=== PATIENT | male | born 1980 | race Caucasian/White ===

== ENCOUNTER 2025-06-20 12:50 | Outpatient (AMB) | payer BC, SELFPAY ==
--- NOTE | 2025-06-20 12:56 | MHC.PC.OV ---
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 Transferring care from [facility]. Medical records have been requested and have not received. 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 He reports difficulty maintaining sleep, waking up after approximately three hours and experiencing difficulty returning to sleep. 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 He denies any anxiety or depression but acknowledges snoring and waking up tired. He has not tried any sleep aids recently. The patient experiences left knee pain, which has persisted for a couple of years. He describes the pain as general soreness with occasional shooting pain at the back of the knee, exacerbated by bending. He wears compression sleeves on both knees and has not had any imaging done previously. The patient has a history of alcohol use disorder, for which he underwent detoxification six years ago. He has been sober since and attends Alcoholics Anonymous meetings. He also smokes approximately ten cigarettes a day and has done so for 28 years. Family history is significant for type 2 diabetes mellitus in his mother, sister, and maternal grandmother, and multiple sclerosis in his father. Reports right upper back mole dark brown, and a lower left back irregular shaping mole that he would like getting examined [facility] Medical History (Updated 06/25/25 @ 16:55 by TELLO Hoskins) Smoker Left knee pain Alcoholism Surgical History No pertinent past surgical history Family History Mother Diabetes mellitus Sister Diabetes mellitus Father Multiple sclerosis Maternal Grandmother Diabetes mellitus Social History Housing: Condominium Alcohol intake: former Patient Tobacco Use Status: Current everyday Tobacco user Tobacco use type: Cigarette Cigarette Packs Per Day: 0.5 Cigarettes Per Day: 10 e-Cigarette/Vaping Use: Never Used Second Hand Smoke Exposure: Yes service: No Current occupational status: employed Current occupation: [employer] Cognitive needs: No Hearing needs: No Vision needs: Yes (Glasses) Questionnaire PHQ-9 Over the last 2 weeks, how often have you been bothered by any of the following problems? 1. Little interest or pleasure in doing things: not at all 2. Feeling down, depressed, or hopeless: not at all 3. Trouble falling or staying asleep, or sleeping too much: more than half the days 4. Feeling tired or having little energy: several days 5. Poor appetite or overeating: not at all 6. Feeling bad about yourself - or that you are a failure or have let yourself or your family down: not at all 7. Trouble concentrating on things, such as reading the newspaper or watching television: not at all 8. Moving or speaking so slowly that other people could have noticed. Or the opposite - being so fidgety or restless that you have been moving around a lot more than usual: not at all 9. Thoughts that you would be better off or of hurting yourself in some way: not at all Total score: 3 Depression Screening Interpretation: Negative Depression Screening Done: Yes 85531 - PHQ-9 Billing: Yes Source: Developed by Drs. Colton Chong, Esteban Mcghee and colleagues, with an educational tonny from [employer]. Thrive Questionnaire Date Thrive assessed: 06/20/25 I am a: Patient What is your living situation today?: I have a steady place to live Within the past 12 months, did the food you bought not last and you didn't have the money to get more?: Never true Within the past 12 months, did you worry whether your food would run out before you got money to buy more?: Never true Do you have trouble paying for medicines?: No Do you have trouble getting transportation to medical appointments?: No Do you have trouble paying your heating and electricity bill?: No Do you have trouble taking care of your child, family member or friend?: No Do you have trouble with day-to-day activities such as bathing, preparing meals, shopping, managing finances, etc.?: No Are you currently unemployed and looking for a job?: No Are you interested in more education?: No Please select the resources that you would like help with: None Currently or been in a relationship where the following occur: No concerns reported THRIVE Score: 0 AUDIT C Alcohol Use Questionnaire (AUDIT-C) 1. How often do you have a drink containing alcohol?: Never Total Score: 0 MARSHAL-7 AMB Questionnaire MARSHAL-7 Date MARSHAL - 7 assessed: 06/20/25 Feeling nervous, anxious, or on edge: 0 = Not at all Not being able to stop or control worryin = Not at all Worrying too much about different things: 0 = Not at all Trouble relaxin = Not at all Being so restless that it is hard to sit still: 0 = Not at all Becoming easily annoyed or irritable: 0 = Not at all Feeling afraid as if something awful might happen: 0 = Not at all Total MARSHAL-7 score (0-4 normal; 5-9 mild; 10-14 moderate; 15-21 severe): 0 Source: Developed by Drs. Colton Chong, Esteban Mcghee and colleagues, with an educational tonny from [employer]. MARSHAL-7 Assessment Billing MARSHAL-7 Assessment Tool: MARSHAL-7 Assessment 22271 Review of Systems Const Reports daytime sleepiness, Reports difficulty sleeping, Denies headache(s), Reports snoring and Reports stops breathing during sleep Eyes Denies loss of vision ENT Denies vertigo, Denies dizziness, Denies headache(s) and Denies sore throat Card Denies chest pain, Denies leg edema and Denies lightheadedness Resp Denies cough, Denies hemoptysis, Reports snoring and Denies wheezing GI Denies abdominal pain, Denies melena, Denies constipation, Denies diarrhea and Denies vomiting Denies dysuria, Denies urinary frequency and Denies urinary urgency Musc Reports arthralgias (Left knee), Denies joint swelling, Denies numbness and Denies tingling Skin/Breast Reports lesions (skin mole) and Denies rash Neuro Denies Abnormal speech present, Denies behavioral changes, Denies vertigo, Denies dizziness, Denies headache(s), Denies loss of vision, Denies memory loss, Denies numbness and Denies tingling Psych Denies anxiety, Denies behavioral changes, Denies depression, Denies memory loss and Denies panic attacks Rocael/Lymph Denies easy bleeding and Denies easy bruising Aller/Immun Denies wheezing Physical exam (Primary Care) Vital Signs: Last Vital Signs Temp 97.1 F 06/20/25 12:58 Pulse 82 06/20/25 12:58 BP 120/80 06/20/25 12:58 Pulse Ox 97 06/20/25 12:58 Oxygen Delivery Method Room Air 06/20/25 12:58 BMI result Body Mass Index 26.9 Tobacco/Smoking Status: Tobacco use Status Tobacco use date assessed 06/20/25 06/20/25 13:08 Patient Tobacco Use Status Current everyday Tobacco 06/20/25 13:08 Tobacco use type Cigarette 06/20/25 13:08 e-Cigarette/Vaping Use Never Used 06/20/25 13:08 PHQ-9: PHQ-9 Score PHQ-9: Total score 3 06/20/25 13:13 Depression Screening Interpretation: Negative Thrive Assessment: Date of Thrive Assessment Date Thrive assessed 06/20/25 06/20/25 13:08 Currently or been in a relationship where the following occur: No concerns reported Const General: healthy appearing, no acute distress, alert and awake Nutritional Appearance: well nourished Orientation/consciousness: oriented to person, oriented to place and oriented to time HENPR Ears: TM's normal bilaterally General nose exam: Normal nasal mucous membranes and turbinates present Eyes Conjunctivae: conjunctivae normal Sclerae: sclerae normal Pupils: Equal, round and reactive pupils present Neck Neck: Yes no lymphadenopathy and Yes no JVD Thyroid: Thyroid normal Carotids: no bruits Resp Effort & Inspection: normal respiratory effort and not tachypneic Auscultation: no crackles, no rales, no rhonchi and no wheezes Cardio Rate: regular rate Rhythm: regular rhythm Heart sounds: S1 normal heart sound present, S2 normal heart sound present, no murmurs and normal S1 and S2 GI Palpation (GI): Soft to palpation, nontender, no hepatomegaly and no splenomegaly Auscultation: normal bowel sounds General: Yes no CVA tenderness Back/Spine/Pelvis Back: no CVA tenderness Skin General skin exam: dry skin Lesions: lesion noted (Right upper back mole and left lower back irregular changed flesh colored) Neuro General: oriented to person, oriented to place and oriented to time Cranial nerves: Yes Equal, round and reactive pupils present Speech: No Abnormal speech present Gait exam (Neuro): Normal gait present Motor exam (neuro): no tremor noted Extrem Right upper extremity: full ROM Left upper extremity: full ROM Right lower extremity: full ROM; no edema Left lower extremity: full ROM and knee Details: tenderness Location: of the pre-patellar area; no swelling; no edema Psych Mental Status: mental status grossly normal Speech and movement: Normal speech and movement present Affect: normal affect Attitude: cooperative Thought process: Normal thought process present Coding Level of Care Code New Pt Level 4 (35980) Diagnoses Heartburn R12 Smoker F17.200 Insomnia, unspecified type G47.00 Insomnia type: unspecified Left knee pain, unspecified chronicity M25.562 Chronicity: unspecified Alcoholism F10.20 Skin mole D22.9 Additional Codes MARSHAL-7 Assessment Billing - MARSHAL-7 Assessment Tool: MARSHAL-7 Assessment 93054 ([id number]) PHQ-9 - 70470 - PHQ-9 Billing: Yes ([id number]) Time Spent (min) 38 Assessment & Plan Assessment & Plan (1) Heartburn: Code(s): R12 - Heartburn Category: Medical Plan: Intermittent heartburn before which the patient is taking omeprazole 20 mg daily as needed Do not eat meals or drink carbonated beverages within 3 hr of bedtime Decrease the amount of fried, fatty, and spicy foods to decrease gastric acid production Raise the head of the bed using 4 to 6-inch blocks, especially if nocturnal symptoms are present Lose weight if indicated; avoid tight-fitting clothing, especially around the waist Avoid foods that relax the Lower esophageal sphincter (chocolate, peppermint, high-fat foods etc.,) (2) Smoker: Code(s): F17.200 - Nicotine dependence, unspecified, uncomplicated Category: Social Hx Plan: Encouraged Smoking cessation (3) Insomnia: Code(s): G47.00 - Insomnia, unspecified Category: Medical Qualifiers: Insomnia type: unspecified Qualified Code(s): G47.00 - Insomnia, unspecified Plan: Patient is having difficulty sleeping. Reports of waking up tired, loud snoring, apneic episodes and daytime tiredness. All consistent with sleep apnea. Sleep study ordered to further evaluate (4) Left knee pain: Code(s): M25.562 - Pain in left knee Category: Medical Qualifiers: Chronicity: unspecified Qualified Code(s): M25.562 - Pain in left knee Plan: Longstanding knee pain, positive tenderness over prepatellar region. Left knee x-ray ordered to further evaluate. (5) Alcoholism: Comment: Continued sobriety over 6 years now Code(s): F10.20 - Alcohol dependence, uncomplicated Category: Medical Plan: History of alcoholism. In remission for over 6 years. Attends AA meetings. (6) Skin mole: Code(s): D22.9 - Melanocytic nevi, unspecified Category: Medical Plan: Right upper back mole. Dermatology referral for routine skin assessment. Orders: Orders UA CC w/rflx Micro + Cult 7 Weeks Z00.00 - Encounter for general adult medical examination without abnormal findings Vitamin D 25-OH Total 7 Weeks Z00.00 - Encounter for general adult medical examination without abnormal findings XR knee LT 3V 06/20/25 M25.562 - Pain in left knee Complete Blood Count Auto Diff 7 Weeks Z00.00 - Encounter for general adult medical examination without abnormal findings Comprehensive Gary. Panel Fast 7 Weeks Z00.00 - Encounter for general adult medical examination without abnormal findings Lipid Panel 7 Weeks Z00.00 - Encounter for general adult medical examination without abnormal findings TSH reflex Free T4 7 Weeks Z00.00 - Encounter for general adult medical examination without abnormal findings RT home sleep study 06/20/25 G47.30 - Sleep apnea, unspecified Referrals Dermatology Referral D22.9 - Melanocytic nevi, unspecified Medications: New trazodone 50 mg PO BEDTIME PRN 30 tabs 3RF sleep
[2025-06-20 12:58] VITALS: BP 120/80; PULSE 82; TEMP 36.2; O2SAT 97; BMI 26.9
== END 2025-06-20 13:35 | disposition home or self-care (01) ==
LOC: HO.HMCH 12:51
DX: R12 Heartburn (principal); F10.20 Alcohol dependence, uncomplicated; F17.200 Nicotine dependence, unspecified, uncomplicated; G47.00 Insomnia, unspecified; M25.562 Pain in left knee; D22.9 Melanocytic nevi, unspecified

== ENCOUNTER → 2025-06-20 12:50 | Outpatient (BNVA) | payer BC, SELFPAY | DX: M25.562 Pain in left knee (principal); G47.00 Insomnia, unspecified; R12 Heartburn; D22.9 Melanocytic nevi, unspecified; G47.30 Sleep apnea, unspecified; F10.20 Alcohol dependence, uncomplicated; F17.210 Nicotine dependence, cigarettes, uncomplicated | CPT/HCPCS: 96127 ==

== ENCOUNTER 2025-08-05 07:15 | Outpatient (REF) | payer BC, SELFPAY ==
--- NOTE | ~2025-08-05 | XR_ITS ---
EXAMINATION: XR KNEE 3 VIEWS LEFT HISTORY: M25.562 - Pain in left knee COMPARISON: There are no prior studies available for comparison. FINDINGS: Three views of the left knee are submitted. Osseous mineralization is normal. There is no fracture or dislocation. The joint spaces are preserved. The soft tissues are unremarkable. There is no joint effusion. XR/XR knee LT 3V IMPRESSION: Unremarkable examination of the left knee. Electronically signed by: Colton Wilkes MD 08/05/2025 07:50 AM EST
--- OUTSIDE RECORDS SUMMARY | 2025-08-05 07:21 | XMS_ITS | Clinical Summary ---
Author Organization [facility] ity Address [address] [place] [address] Care Team Providers Care Full Stack Php Developer Name Role Phone Unavailable Primary Care Provider Unavailabl e Social History Tobacco Use Types Packs/Day Years Used Date Smoking Tobacco: Never Assessed Sex and Gender Information Value Date Recorded Sex Assigned at Not on file Legal Sex Male 10:17 PM EST Gender Identity Not on file Sexual Orientation Not on file Plan of Treatment Health Maintenance Due Date Last Done Comments Colorectal Cancer Screening: Colonoscopy 1980 DTaP,Tdap,and Td Vaccines (1 - Tdap) 1999 Hepatitis B Vaccines (1 of 3 - 19+ 3-dose series) 1999 HPV Vaccines (1 - 3-dose SCD M series) 2007 Cholesterol Screening (Lipid Panel) 03/23/2024 HIV Screening 03/23/2024 Hepatitis C Screening 03/23/2024 Social Influencers of Health Screening 03/23/2024 Depression Screening 09/01/2024 COVID-19 Vaccine (1 - 2024-2 6 season) 2025 Influenza Vaccine (#1) 2025 RSV Immunization Adult Patie nts (1 - 1-dose 75+ series) 2055 HIB Vaccines Aged Out No longer eligi ble based on patient's age to complete this topic Hepatitis A Vaccines Aged Out No long er eligible based on patient's age to complete this topic IPV Vaccines Aged Out No longer eligi ble based on patient's age to complete this topic MMR Vaccines Aged Out No longer eligi ble based on patient's age to complete this topic Meningococcal ACWY Vaccine Aged Out N o longer eligible based on patient's age to complete this topic Meningococcal B Vaccine Aged Out No l onger eligible based on patient's age to complete this topic Pneumococcal Vaccine: Pediat rics (0 to 5 Years) and At-Risk Patients (6 to 49 Years) Aged Out No longer eligible b ased on patient's age to complete this topic RSV Immunization Patients Un jocelyne 20 months Aged Out No longer eligible b ased on patient's age to complete this topic Varicella Vaccines Aged Out No longer eligible based on patient's age to complete this topic
[2025-08-05 07:30] LABS: MANUAL DIFF FLAG NO
[2025-08-05 07:51] LABS: Hematocrit 44.8 % (42.0-52.0); Hemoglobin 14.9 g/dl (14.0-18.0); Imm Gran Abs Auto 0.01 X10*3/uL (0.00-0.03); Imm Gran Pct Auto 0.2 % (0.0-0.4); Lymphocytes Absolute Auto 1.5 X10*3/uL (1.2-4.9); Mean Corpuscular HGB Conc 33.3 g/dl (31.0-36.0); Mean Corpuscular Hemoglobin 30.7 pg (27.0-33.0); Mean Corpuscular Volume 92.2 fL (80.0-98.0); NRBC Abs Auto 0.000 X10*3/uL (0.0-0.012); NRBC Pct Auto 0.0 /100WBC (0.0-0.2); Platelet Count 209 X10*3/uL (160-400); Red Blood Count 4.86 X10*6/uL (4.60-5.80); White Blood Count 5.2 X10*3/uL (4.8-10.8)
[2025-08-05 08:03] LABS: Appearance Urine Clear; Glucose Urine UA Negative (Negative); PH 5.5 (5.0-9.0); Specific Gravity - Urine 1.015 (1.005-1.025)
[2025-08-05 08:46] LABS: Alanine Aminotransferase 40 U/L (0-40); Albumin Level 5.0 g/dL (3.5-5.0); Alkaline Phosphatase 75 U/L (39-117); Anion Gap 12 (12-20); Aspartate Amino Transferase 30 U/L (5-37); Blood Urea Nitrogen 13 mg/dL (9-16); Calcium 9.5 mg/dL (8.4-10.2); Carbon Dioxide 29 mmol/L (22-29); Chloride 107 mmol/L (96-108); Cholesterol 191 mg/dL (<200); Estimated Glomerular Filt Rate > 60; HDL Cholesterol 45 mg/dL (>40); Potassium 4.5 mmol/L (3.3-5.1); Sodium 143 mmol/L (135-145); Total Protein 7.2 g/dL (6.5-8.0); Triglycerides 83 mg/dL (<150)
== END 2025-08-05 07:16 | disposition home or self-care (01) ==
LOC: HO.XRAY 07:15
DX: Z00.00 Encounter for general adult medical examination without abnormal findings (principal); M25.562 Pain in left knee; Z13.29 Encounter for screening for other suspected endocrine disorder; Z13.21 Encounter for screening for nutritional disorder; Z13.6 Encounter for screening for cardiovascular disorders
CPT/HCPCS: 36415; 73562; 80053; 80061; 81003; 82306; 84443; 85025

== ENCOUNTER → 2025-08-05 07:37 | Outpatient (BNV) | payer BC, SELFPAY | PROVIDERS: Visit Provider Radiology Diagnostic Radiology | DX: M25.562 Pain in left knee (principal) | CPT/HCPCS: 73562 ==

== ENCOUNTER 2025-08-11 08:15 | Outpatient (AMB) | payer BC, SELFPAY ==
--- NOTE | 2025-08-11 08:18 | MHC.PC.OV ---
Vital Signs 08/11/25 08:19 Height 5 ft 9.29 in Weight 184 lb BMI 26.9 BP 118/64 Blood Pressure Location Lt brachial Position Sitting Pulse 74 Pulse Source Pulse Oximeter Temp 97.1 F Temp Source Temporal Artery Scan Pulse Oximetry (%) 99 Oxygen Delivery Method Room Air Intake Visit Reasons: annual physical/lab review Intake Note: Patient is here today for a physical. Records Technician Required: No Brakes Inspector: Not Required per policy Accompanied by: Self / Same As Patient Allergies No Known Allergies Allergy (Verified 08/11/25 08:34) Medication List - Last Reconciled 08/11/25 by TELLO Hoskins trazodone 50 mg PO BEDTIME PRN Tobacco use date assessed: 08/11/25 Dental Screening Dental Screen Date: 06/20/25 HPI annual physical/lab review HPI Details Dentist: about 3 years Eye: up to date Snellen: Right: Left: Corrected vision: yes, glasses STI screening: Colonoscopy: cologuard Pap Smer: PHQ-9: Flu:igven in the office today COVID: x3 Tdap:about 7 or 8 years since he had this done Diet: regular Exercise: does not The patient is a 45 year old male presenting for a physical examination. He reports bilateral knee pain, which is worse in the left knee. The pain is manageable but present as he is on his feet all day at work. He uses compression sleeves to manage the symptoms. He denies any recent injury but notes the pain has gotten progressively worse over time. An X-ray of the knee was normal. Regarding his health maintenance, he has not seen a dentist in three years and had his last eye exam in November, for which he wears glasses. He has never had a colonoscopy, but his father has a history of benign polyps. He reports having three COVID-19 vaccines and a tetanus shot 7-8 years ago. He did not receive the flu vaccine this year but usually does. He experiences poor sleep, which has not improved. 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 [facility] Medical History (Updated 08/11/25 @ 09:05 by TELLO Hoskins) Smoker Left knee pain Alcoholism Surgical History No pertinent past surgical history Family History Mother Diabetes mellitus Sister Diabetes mellitus Father Multiple sclerosis Maternal Grandmother Diabetes mellitus Social History (Updated 08/11/25 @ 08:23 by FELY Palafox) Housing: Condominium Alcohol intake: former Patient Tobacco Use Status: Former Tobacco user (Quit 07/2025) Tobacco use type: Cigarette Cigarette Packs Per Day: 0.5 Cigarettes Per Day: 10 e-Cigarette/Vaping Use: Never Used Second Hand Smoke Exposure: Yes service: No Current occupational status: employed Current occupation: Retail Cognitive needs: No Hearing needs: No Vision needs: Yes (Glasses) Questionnaire PHQ-9 Over the last 2 weeks, how often have you been bothered by any of the following problems? Depression Screening Interpretation: Negative Depression Screening Done: Yes Source: Developed by Drs. Colton Chong, Dee Broussard, Esteban Hardin and colleagues, with an educational tonny from [employer]. Thrive Questionnaire Date Thrive assessed: 06/20/25 I am a: Patient What is your living situation today?: I have a steady place to live Within the past 12 months, did the food you bought not last and you didn't have the money to get more?: Never true Within the past 12 months, did you worry whether your food would run out before you got money to buy more?: Never true Do you have trouble paying for medicines?: No Do you have trouble getting transportation to medical appointments?: No Do you have trouble paying your heating and electricity bill?: No Do you have trouble taking care of your child, family member or friend?: No Do you have trouble with day-to-day activities such as bathing, preparing meals, shopping, managing finances, etc.?: No Are you currently unemployed and looking for a job?: No Are you interested in more education?: No Please select the resources that you would like help with: None Currently or been in a relationship where the following occur: No concerns reported THRIVE Score: 0 MARSHAL-7 AMB Questionnaire MARSHAL-7 Date MARSHAL - 7 assessed: 06/20/25 Source: Developed by Aguila Griemset B.W. Bobo, Esteban Hardin and colleagues, with an educational tonny from [employer]. Review of Systems Const Reports daytime sleepiness, Reports difficulty sleeping, Denies headache(s), Reports snoring and Reports stops breathing during sleep Eyes Denies loss of vision ENT Denies vertigo, Denies dizziness, Denies headache(s) and Denies sore throat Card Denies chest pain, Denies leg edema and Denies lightheadedness Resp Denies cough, Denies hemoptysis, Reports snoring and Denies wheezing GI Denies abdominal pain, Denies melena, Denies constipation, Denies diarrhea and Denies vomiting Denies dysuria, Denies urinary frequency and Denies urinary urgency Musc Reports arthralgias (Left knee), Denies joint swelling, Denies numbness and Denies tingling Skin/Breast Reports lesions (skin mole) and Denies rash Neuro Denies Abnormal speech present, Denies behavioral changes, Denies vertigo, Denies dizziness, Denies headache(s), Denies loss of vision, Denies memory loss, Denies numbness and Denies tingling Psych Denies anxiety, Denies behavioral changes, Denies depression, Denies memory loss and Denies panic attacks Rocael/Lymph Denies easy bleeding and Denies easy bruising Aller/Immun Denies wheezing Physical exam (Primary Care) Vital Signs: Last Vital Signs Temp 97.1 F 08/11/25 08:19 Pulse 74 08/11/25 08:19 BP 140/70 H 08/11/25 08:19 Pulse Ox 99 08/11/25 08:19 Oxygen Delivery Method Room Air 08/11/25 08:19 BMI result Body Mass Index 26.9 Tobacco/Smoking Status: Tobacco use Status Tobacco use date assessed 08/11/25 08/11/25 08:24 Patient Tobacco Use Status Former Tobacco user (Quit 11 08/11/25 08:24 ) Tobacco use type Cigarette 08/11/25 08:24 e-Cigarette/Vaping Use Never Used 08/11/25 08:24 Depression Screening Interpretation: Negative Thrive Assessment: Date of Thrive Assessment Date Thrive assessed 06/20/25 08/11/25 08:24 Currently or been in a relationship where the following occur: No concerns reported Const General: healthy appearing, no acute distress, alert and awake Nutritional Appearance: well nourished Orientation/consciousness: oriented to person, oriented to place and oriented to time HENMT Ears: TM's normal bilaterally General nose exam: Normal nasal mucous membranes and turbinates present Eyes Conjunctivae: conjunctivae normal Sclerae: sclerae normal Pupils: Equal, round and reactive pupils present Neck Neck: Yes no lymphadenopathy and Yes no JVD Thyroid: Thyroid normal Carotids: no bruits Resp Effort & Inspection: normal respiratory effort and not tachypneic Auscultation: no crackles, no rales, no rhonchi and no wheezes Cardio Rate: regular rate Rhythm: regular rhythm Heart sounds: S1 normal heart sound present, S2 normal heart sound present, no murmurs and normal S1 and S2 GI Palpation (GI): Soft to palpation, nontender, no hepatomegaly and no splenomegaly Auscultation: normal bowel sounds General: Yes no CVA tenderness Back/Spine/Pelvis Back: no CVA tenderness Skin General skin exam: dry skin Lesions: lesion noted (Right upper back mole and left lower back irregular changed flesh colored) Neuro General: oriented to person, oriented to place, oriented to time and no focal motor deficits Cranial nerves: Yes CN's II-XII intact bilaterally, Yes Equal, round and reactive pupils present and Yes Nystagmus not present Speech: No Abnormal speech present Gait exam (Neuro): Normal gait present Motor exam (neuro): 5/5 motor strength present throughout and no tremor noted Deep tendon reflexes (DTR's): Right triceps reflex intensity grade: 2+, Left triceps reflex intensity grade: 2+, Rt Biceps (C5, C6): 2+, Left biceps reflex intensity grade: 2+, Right brachioradialis reflex intensity grade: 2+, Left brachioradialis reflex intensity grade: 2+, Right patellar reflex intensity grade: 2+ and Left patellar reflex intensity grade: 2+ Extrem Right upper extremity: full ROM Left upper extremity: full ROM Right lower extremity: full ROM; no edema Left lower extremity: full ROM and knee Details: tenderness Location: of the pre-patellar area; no swelling; no edema Psych Mental Status: mental status grossly normal Speech and movement: Normal speech and movement present Affect: normal affect Attitude: cooperative Thought process: Normal thought process present Office Procedures Flu Questionnaire Does the patient have a severe egg allergy?: No Does the patient have severe life threatening allergies?: No Does the patient have a fever or illness today?: No Has the patient ever had Guillain-Jackson Syndrome?: No Has the patient ever had any past reaction to a flu shot?: No Immunizations Fluarix [id number] (PF) 45 mcg (15 mcg x 3)/0.5 mL IM syringe Performing Provider: TELLO Hoskins [facility] [place] [facility] Administered by: Jory Milian CMA on 08/11/25 08:49 Dose Route Admin Location Dispensed Lot Number Expiration Date NDC Microbiology Quality Control Technician 0.5 mL IM Right Deltoid 0.5 mL [id number] 02/28/26 [id number] [id number] VIS Given Date VIS Provided VIS Publication Date 08/11/25 Single Vaccine 24 Eligibility Eligibility Date Funding Source [place] [facility] [place] 08/11/25 Private Results Reviewed Results Reviewed: Laboratory Tests 08/05/25 08/05/25 07:23 07:28 WBC 5.2 RBC 4.86 Hgb 14.9 Hct 44.8 MCV 92.2 MCH 30.7 MCHC 33.3 RDW 12.2 Plt Count 209 Sodium 143 Potassium 4.5 Chloride 107 Carbon Dioxide 29 Anion Gap 12 BUN 13 Creatinine 0.98 Estimated GFR > 60 Fasting Glucose 93 Calcium 9.5 Total Bilirubin 0.5 AST 30 ALT 40 Alkaline Phosphatase 75 Total Protein 7.2 Albumin 5.0 Triglycerides 83 Cholesterol 191 LDL Cholesterol, Calc 130 H HDL Cholesterol 45 25-OH Vitamin D Total 48.7 TSH 2.13 Urine Color Yellow Urine Appearance Clear Urine pH 5.5 Ur Specific [place] 1.015 Urine Protein Negative Urine Glucose (UA) Negative Urine Ketones Negative Urine Blood Negative Urine Nitrite Negative Ur Leukocyte Esterase Negative Coding Level of Care Code Est Pt Prev Care 40-64y(62818) Diagnoses Annual physical exam Z00.00 Heartburn R12 Smoker F17.200 Insomnia, unspecified type G47.00 Insomnia type: unspecified Left knee pain, unspecified chronicity M25.562 Chronicity: unspecified Alcoholism F10.20 Skin mole D22.9 Pure hypercholesterolemia E78.00 Hyperlipidemia type: pure hypercholesterolemia Time Spent (min) 37 Assessment & Plan Assessment & Plan (1) Annual physical exam: Code(s): Z00.00 - Encounter for general adult medical examination without abnormal findings Category: Medical Plan: Preventative guidelines and recent labs reviewed with the patient. Cologuard ordered. Flu vaccine given in office today. Patient reports having tetanus shot around 7-8 years ago. (2) Heartburn: Code(s): R12 - Heartburn Category: Medical Plan: Intermittent heartburn before which the patient is taking omeprazole 20 mg daily as needed Do not eat meals or drink carbonated beverages within 3 hr of bedtime Decrease the amount of fried, fatty, and spicy foods to decrease gastric acid production Raise the head of the bed using 4 to 6-inch blocks, especially if nocturnal symptoms are present Lose weight if indicated; avoid tight-fitting clothing, especially around the waist Avoid foods that relax the Lower esophageal sphincter (chocolate, peppermint, high-fat foods etc.,) (3) Smoker: Code(s): F17.200 - Nicotine dependence, unspecified, uncomplicated Category: Social Hx Plan: Encouraged Smoking cessation (4) Insomnia: Code(s): G47.00 - Insomnia, unspecified Category: Medical Qualifiers: Insomnia type: unspecified Qualified Code(s): G47.00 - Insomnia, unspecified Plan: Patient is having difficulty sleeping. Reports of waking up tired, loud snoring, apneic episodes and daytime tiredness. All consistent with sleep apnea. Sleep study ordered to further evaluate. Trazodone 50 mg p.r.n. was also ordered. Patient reports that this helps but has not been able to take this consistently due to fluctuation in his work schedule. (5) Left knee pain: Code(s): M25.562 - Pain in left knee Category: Medical Qualifiers: Chronicity: unspecified Qualified Code(s): M25.562 - Pain in left knee Plan: Longstanding knee pain, positive tenderness over prepatellar region. Left knee x-ray unremarkable. Patient reports that this has been manageable. SDM: We will continue conservative management and monitor for now, and the patient we will contact office for any changes. Consider ordering PT if this continues. (6) Alcoholism: Comment: Continued sobriety over 6 years now Code(s): F10.20 - Alcohol dependence, uncomplicated Category: Medical Plan: History of alcoholism. In remission for over 6 years. Attends AA meetings. (7) Skin mole: Code(s): D22.9 - Melanocytic nevi, unspecified Category: Medical Plan: Right upper back mole. Dermatology referral for routine skin assessment. (8) HLD (hyperlipidemia): Code(s): E78.5 - Hyperlipidemia, unspecified Category: Medical Qualifiers: Hyperlipidemia type: pure hypercholesterolemia Qualified Code(s): E78.00 - Pure hypercholesterolemia, unspecified Plan: The patient's LDL cholesterol is 130 mg/dL, which is elevated. The initial plan is to manage this with dietary changes, focusing on reducing intake of fried foods, red meat, and high-cholesterol dairy products, rather than starting medication at this time. A follow-up appointment with a repeat lipid panel is scheduled in four months to assess the impact of these lifestyle modifications. Orders: Orders Influenza [id number] Immunization Today Z23 - Encounter for immunization TSH reflex Free T4 4 Months E78.5 - Hyperlipidemia, unspecified, F10.20 - Alcohol dependence, uncomplicated, F17.200 - Nicotine dependence, unspecified, uncomplicated, G47.00 - Insomnia, unspecified Lipid Panel 4 Months E78.5 - Hyperlipidemia, unspecified, F10.20 - Alcohol dependence, uncomplicated, F17.200 - Nicotine dependence, unspecified, uncomplicated, G47.00 - Insomnia, unspecified UA CC w/rflx Micro + Cult 4 Months E78.5 - Hyperlipidemia, unspecified, F10.20 - Alcohol dependence, uncomplicated, F17.200 - Nicotine dependence, unspecified, uncomplicated, G47.00 - Insomnia, unspecified Comprehensive [place]. Panel Fast 4 Months E78.5 - Hyperlipidemia, unspecified, F10.20 - Alcohol dependence, uncomplicated, F17.200 - Nicotine dependence, unspecified, uncomplicated, G47.00 - Insomnia, unspecified Referrals Cologuard Test Z12.11 - Encounter for screening for malignant neoplasm of colon, Z12.12 - Encounter for screening for malignant neoplasm of rectum
[2025-08-11 08:19] VITALS: BP 118/64; PULSE 74; TEMP 36.2; O2SAT 99; BMI 26.9
== END 2025-08-11 09:00 | disposition home or self-care (01) ==
LOC: HO.HMCH 08:16
DX: Z00.00 Encounter for general adult medical examination without abnormal findings (principal); R12 Heartburn; F10.20 Alcohol dependence, uncomplicated; F17.200 Nicotine dependence, unspecified, uncomplicated; G47.00 Insomnia, unspecified; M25.562 Pain in left knee; D22.9 Melanocytic nevi, unspecified; E78.00 Pure hypercholesterolemia, unspecified; Z23 Encounter for immunization

== ENCOUNTER → 2025-08-11 08:15 | Outpatient (BNVA) | payer BC, SELFPAY | DX: Z23 Encounter for immunization (principal); Z00.00 Encounter for general adult medical examination without abnormal findings; R12 Heartburn; G47.00 Insomnia, unspecified; M25.562 Pain in left knee; F10.20 Alcohol dependence, uncomplicated; D22.9 Melanocytic nevi, unspecified; E78.00 Pure hypercholesterolemia, unspecified; F17.210 Nicotine dependence, cigarettes, uncomplicated | CPT/HCPCS: 90471; 90656 ==